=== PATIENT | male | born 1985 | race African-American/Black ===

== ENCOUNTER 2018-05-09 19:28 | Emergency (ER) | payer OTHER ==
[~2018-05-09] VITALS: Ht 170.2 cm; Wt 86.2 kg
[2018-05-09 19:37] VITALS: Ht 170.2 cm; Wt 86.2 kg
[2018-05-09 21:04] VITALS: BP 134/69
== END 2018-05-09 21:37 | disposition home or self-care (01) ==
LOC: ED 19:28
DX: T40.7X5A Adverse effect of cannabis (derivatives), initial encounter (principal); Y92.89 Other specified places as the place of occurrence of the external cause
CPT/HCPCS: Q0162